=== PATIENT | female | born 1955 | race Caucasian/White ===

== ENCOUNTER 2019-01-24 15:44 | Inpatient (IN) | payer OTHER ==
[~2019-01-24] VITALS: Ht 157.5 cm; Wt 154.6 kg
[2019-01-24] MEDS ORDERED: ASPIRIN 81 MG TABLET CHEW PO ONE (16:00)
--- NOTE | 2019-01-24 16:30 | NUR ---
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
[2019-01-24 16:33] LABS: BASOPHILS # (AUTO) 0.03 x10^3/uL (0-0.1); BASOPHILS % (AUTO) 0 % (0-1); EOSINOPHILS # (AUTO) 0.25 x10^3/uL (0-0.4); EOSINOPHILS % (AUTO) 3 % (1-7); LYMPHOCYTES # (AUTO) 1.56 x10^3/uL (1-3.4); LYMPHOCYTES % (AUTO) 18 % (22-44); MD NO; MEAN CORPUSCULAR HEMOGLOBIN 29.6 pg (27.0-34.8); MEAN CORPUSCULAR HGB CONC 32.6 g/dL (32.4-35.8); MEAN CORPUSCULAR VOLUME 90.8 fL (80-100); MEAN PLATELET VOLUME 8.5 fL (7.4-10.4); MONOCYTES # (AUTO) 0.59 x10^3/uL (0.2-0.8); MONOCYTES % (AUTO) 7 % (2-9); NEUTROPHILS # (AUTO) 6.29 x10^3/uL (1.8-6.8); NEUTROPHILS % (AUTO) 72 % (42-75); PLATELET COUNT 305 x10^3/uL (130-400); RED BLOOD COUNT 5.17 x10^6/uL (3.82-5.3); RED CELL DISTRIBUTION WIDTH 15.2 % (9.6-15.2)
[2019-01-24 16:42] LABS: ALBUMIN 3.6 g/dL (3.4-5.0); ANION GAP 7 mmol/L (5-15); CALCIUM 8.9 mg/dL (8.5-10.1); CHLORIDE 107 mmol/L (98-107)
--- NOTE | 2019-01-24 16:46 | NUR ---
TJ RN: PT WAS AT HER DOCTOR'S OFFICE TODAY AND REPORTED CHEST PRESSURE WITH BILATERAL LEG WHEEPING. PT REPORTS THE CHEST PRESSURE CAME ON AT 10 AM THIS MORNING. 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 NSR NOTED. AT BEDSIDE. VS STABLE AT THIS TIME. REPORT GIVEN TO REGINE VILLAGOMEZ
[2019-01-24 16:47] LABS: ALANINE AMINOTRANSFERASE 26 U/L (12-78); ALKALINE PHOSPHATASE 118 U/L (45-117); BILIRUBIN,TOTAL 0.8 mg/dL (0.2-1.0); CREATININE 1.01 mg/dL (0.55-1.02); TOTAL PROTEIN 7.6 g/dL (6.4-8.2); TROPONIN I < 0.015 ng/mL (0.000-0.045)
[2019-01-24] MEDS ORDERED: ASPIRIN 81 MG TABLET CHEW ONE (17:15)
[2019-01-24] MEDS ORDERED: BUDE10.22 INH (17:27)
[2019-01-24] MEDS ORDERED: [UNRECOGNIZED DRUG - OTHER] PO (17:27)
[2019-01-24] MEDS ORDERED: CELE200C PO (17:27)
--- NOTE | 2019-01-24 17:28 | NUR ---
PT MEDICATED PER MAR, PLAN FOR PT TO BE ADMITTED. AWAITING BED PLACEMENT, PT WITH NO NEEDS AT THIS TIME
--- NOTE | 2019-01-24 18:29 | NUR ---
PIV INITIATED, AWAITING BED PLACEMENT, NAD NOTED
[2019-01-24] MEDS ORDERED: POLYETHYLENE GLYCOL 17 GM PACKET PO PRN (20:00)
[2019-01-24] MEDS ORDERED: ACETAMINOPHEN 325 MG TABLET PO PRN (20:00)
[2019-01-24] MEDS ORDERED: morphine SULFATE 10 MG/ML, 1ML IVPush PRN (20:00)
[2019-01-24] MEDS ORDERED: ONDANSETRON ODT 4 MG PO PRN (20:00)
[2019-01-24] MEDS ORDERED: BISACODYL 10 MG SUPP PR PRN (20:00)
[2019-01-24] MEDS ORDERED: NITROGLYCERIN 0.4 MG BOTTLE (25 TABS) SL PRN (20:00)
[2019-01-24] MEDS ORDERED: ALBUTEROL SULFATE 2.5 MG/3 ML NPPB SCH (20:30)
[2019-01-24 20:33] VITALS: BP 144/81
[2019-01-24] MEDS: BUDESONIDE 0.5 MG/2 ML INHA INH SCH (21:00)
[2019-01-24] MEDS ORDERED: TEMPLATE NON-FORMULARY MED. (Budesonide/Formoterol Fumarate (Symbicort 80-4.5 Mcg Inhaler) INH SCH (21:00)
[2019-01-24] MEDS ORDERED: ALBUTEROL SULFATE 2.5 MG/3 ML NPPB PRN (21:00)
[2019-01-24] MEDS: HEPARIN 5,000 UNITS/ML, 1ML SQ SCH (21:01)
[2019-01-24] MEDS: SODIUM CHLORIDE FLUSH 10ML SYR IVF SCH (21:02)
[2019-01-24 22:37] LABS: TROPONIN I 0.027 ng/mL (0.000-0.045)
[2019-01-24 23:50] VITALS: BP 167/87
[2019-01-25 02:00] VITALS: BP 139/83
[2019-01-25] MEDS: HEPARIN 5,000 UNITS/ML, 1ML SQ SCH ×3 (05:20→20:32)
[2019-01-25] MEDS: ASPIRIN 81 MG TABLET CHEW PO SCH (05:20)
[2019-01-25 06:52] LABS: BASOPHILS # (AUTO) 0.05 x10^3/uL (0-0.1); BASOPHILS % (AUTO) 1 % (0-1); EOSINOPHILS # (AUTO) 0.28 x10^3/uL (0-0.4); EOSINOPHILS % (AUTO) 4 % (1-7); LYMPHOCYTES # (AUTO) 0.95 x10^3/uL (1-3.4); LYMPHOCYTES % (AUTO) 13 % (22-44); MD NO; MEAN CORPUSCULAR HEMOGLOBIN 29.9 pg (27.0-34.8); MEAN CORPUSCULAR HGB CONC 32.3 g/dL (32.4-35.8); MEAN CORPUSCULAR VOLUME 92.6 fL (80-100); MEAN PLATELET VOLUME 8.9 fL (7.4-10.4); MONOCYTES # (AUTO) 0.47 x10^3/uL (0.2-0.8); MONOCYTES % (AUTO) 6 % (2-9); NEUTROPHILS # (AUTO) 5.83 x10^3/uL (1.8-6.8); NEUTROPHILS % (AUTO) 77 % (42-75); PLATELET COUNT 302 x10^3/uL (130-400); RED BLOOD COUNT 4.92 x10^6/uL (3.82-5.3); RED CELL DISTRIBUTION WIDTH 14.9 % (9.6-15.2)
[2019-01-25 07:05] LABS: ALBUMIN 3.3 g/dL (3.4-5.0); ANION GAP 6 mmol/L (5-15); CALCIUM 8.2 mg/dL (8.5-10.1); CHLORIDE 108 mmol/L (98-107)
[2019-01-25 07:09] LABS: ALANINE AMINOTRANSFERASE 24 U/L (12-78); ALKALINE PHOSPHATASE 100 U/L (45-117); BILIRUBIN,TOTAL 0.7 mg/dL (0.2-1.0); CHOL/HDL RATIO 2.9; CHOLESTEROL, TOTAL 152 mg/dL (140-239); HDL CHOL % 35 % (28-40); HDL CHOLESTEROL (DIRECT) 53 mg/dL (40-60); LDL CHOLESTEROL,CALCULATED 79 mg/dL (54-169); LDL/HDL RATIO 1.5 (0.5-3.0); TOTAL PROTEIN 6.7 g/dL (6.4-8.2); TRIGLYCERIDES 98 mg/dL (50-200); VLDL CHOLESTEROL 20 mg/dL (0-25)
[2019-01-25 07:34] VITALS: BP 145/96
[2019-01-25] MEDS: SENNA/DOCUSATE TABLET PO SCH (08:39)
[2019-01-25] MEDS ORDERED: REGADENOSON 0.4 MG/5 ML SYRINGE ONE (09:15)
[2019-01-25] MEDS: BUDESONIDE 0.5 MG/2 ML INHA INH SCH ×3 (09:35→21:40)
[2019-01-25] MEDS ORDERED: FUROSEMIDE 20 MG/2 ML IV ONE (12:30)
[2019-01-25 12:34] VITALS: BP 151/83
[2019-01-25] MEDS: SODIUM CHLORIDE FLUSH 10ML SYR IVF SCH ×2 (13:08→20:32)
[2019-01-25] MEDS: POTASSIUM CHLORIDE 20 MEQ TAB.ER.PRT PO SCH (16:42)
[2019-01-25 21:50] VITALS: BP 145/80
[2019-01-26 02:00] VITALS: BP 129/75
[2019-01-26] MEDS: ASPIRIN 81 MG TABLET CHEW PO SCH (05:12)
[2019-01-26] MEDS: HEPARIN 5,000 UNITS/ML, 1ML SQ SCH ×2 (05:13→14:11)
[2019-01-26 05:27] LABS: BASOPHILS # (AUTO) 0.04 x10^3/uL (0-0.1); BASOPHILS % (AUTO) 1 % (0-1); EOSINOPHILS # (AUTO) 0.21 x10^3/uL (0-0.4); EOSINOPHILS % (AUTO) 3 % (1-7); LYMPHOCYTES # (AUTO) 1.31 x10^3/uL (1-3.4); LYMPHOCYTES % (AUTO) 17 % (22-44); MD NO; MEAN CORPUSCULAR HGB CONC 32.9 g/dL (32.4-35.8); MEAN CORPUSCULAR VOLUME 91.3 fL (80-100); MEAN PLATELET VOLUME 8.8 fL (7.4-10.4); MONOCYTES # (AUTO) 0.63 x10^3/uL (0.2-0.8); MONOCYTES % (AUTO) 8 % (2-9); NEUTROPHILS # (AUTO) 5.66 x10^3/uL (1.8-6.8); NEUTROPHILS % (AUTO) 72 % (42-75); PLATELET COUNT 291 x10^3/uL (130-400); RED BLOOD COUNT 4.85 x10^6/uL (3.82-5.3)
[2019-01-26 05:29] LABS: ANION GAP 4 mmol/L (5-15); CALCIUM 8.3 mg/dL (8.5-10.1); CHLORIDE 107 mmol/L (98-107); CREATININE 0.88 mg/dL (0.55-1.02)
[2019-01-26 07:10] VITALS: BP 162/89
[2019-01-26] MEDS: BUDESONIDE 0.5 MG/2 ML INHA INH SCH (09:35)
[2019-01-26] MEDS: SODIUM CHLORIDE FLUSH 10ML SYR IVF SCH (09:58)
[2019-01-26] MEDS: POTASSIUM CHLORIDE 20 MEQ TAB.ER.PRT PO SCH (09:58)
[2019-01-26] MEDS: SENNA/DOCUSATE TABLET PO SCH (09:59)
[2019-01-26 12:15] VITALS: BP 178/80
[2019-01-26] MEDS ORDERED: FURO-93 PO (13:54)
[2019-01-26] MEDS ORDERED: METO25TA91 PO (13:54)
[2019-01-26] MEDS ORDERED: POTA20TA6 PO (13:54)
[2019-01-26] MEDS ORDERED: APIX5TAB PO (13:54)
== END 2019-01-26 16:55 | disposition home or self-care (01) | DRG 315 ==
LOC: ED 18:36 → EDIP 19:37 → 5SO 20:13 → DCLOUNGE 01-26 16:32
PROVIDERS: ADMIT Internal Medicine; ATTEND Family Medicine
PROC: 5A09357 Assistance with Respiratory Ventilation, Less than 24 Consecutive Hours, Continuous Positive Airway Pressure (ICD-10-PCS; principal; 2019-01-25)
PROC: 5A09357 Assistance with Respiratory Ventilation, Less than 24 Consecutive Hours, Continuous Positive Airway Pressure (ICD-10-PCS; 2019-01-26)
DX: I27.20 Pulmonary hypertension, unspecified (principal); Z68.44 Body mass index [BMI] 60.0-69.9, adult; G43.909 Migraine, unspecified, not intractable, without status migrainosus; E66.2 Morbid (severe) obesity with alveolar hypoventilation; I48.0 Paroxysmal atrial fibrillation; I51.7 Cardiomegaly; Z96.653 Presence of artificial knee joint, bilateral; I77.810 Thoracic aortic ectasia; J45.909 Unspecified asthma, uncomplicated; Z90.710 Acquired absence of both cervix and uterus; Z90.49 Acquired absence of other specified parts of digestive tract; Z88.0 Allergy status to penicillin; Z88.2 Allergy status to sulfonamides; Z88.8 Allergy status to other drugs, medicaments and biological substances
CPT/HCPCS: 36415; 93017; J7626; 71046; 78452; 80048; 80053; 80061; 83880; 84484; 85025; 85379; 93005; 93306; 93970; 94640; 94660; G0378; J1644; J2785; A9502; J1940

== ENCOUNTER 2020-03-27 11:43 | Emergency (ER) | payer MEDICARE, OTHER ==
[~2020-03-27] VITALS: Ht 157.5 cm; Wt 153.0 kg
[~2020-03-27 11:43] MED LIST: APIX5TAB PO; BUDE10.22 INH; CELE200C PO; FURO-93 PO; METO25TA91 PO; POTA20TA6 PO; [UNRECOGNIZED DRUG - OTHER] PO
[2020-03-27] MEDS ORDERED: PROPOFOL 10 MG/ML, 20ML ONE (12:29)
[2020-03-27] MEDS ORDERED: DILTIAZEM 5 MG/ML, 5ML IVPush ONE (12:30)
[2020-03-27] MEDS ORDERED: PROPOFOL 10 MG/ML, 20ML IVPush ONE (12:30)
[2020-03-27] MEDS ORDERED: SODIUM CHLORIDE FLUSH 10ML SYR IVF ONE (12:30)
--- NOTE | 2020-03-27 12:35 | NUR ---
PIV PLACED, LABS DRAWN AND COLLECTED BY SKEIN BLEACHER. PT CONNECTED TO ZOLL, SUCTION, AMBU BAG AT BEDSIDE. CONSENT SIGNED FOR CARDIOVERSION AND PROCEDURAL SEDATION., SPOUSE AT BEDSIDE.
[2020-03-27] MEDS ORDERED: DILTIAZEM 5 MG/ML, 5ML ONE (12:40)
[2020-03-27 12:45] LABS: BASOPHILS % (AUTO) 1 % (0-1); EOSINOPHILS % (AUTO) 2 % (1-7); LYMPHOCYTES % (AUTO) 16 % (22-44); MD NO; MEAN PLATELET VOLUME 8.7 fL (7.4-10.4); MONOCYTES % (AUTO) 6 % (2-9); NEUTROPHILS % (AUTO) 75 % (42-75); PLATELET COUNT 340 x10^3/uL (130-400); RED BLOOD COUNT 5.44 x10^6/uL (3.82-5.3); RED CELL DISTRIBUTION WIDTH 15.1 % (9.6-15.2)
[2020-03-27 12:54] LABS: ALBUMIN 3.9 g/dL (3.4-5.0); ANION GAP 5 mmol/L (5-15); CALCIUM 9.4 mg/dL (8.5-10.1); CHLORIDE 107 mmol/L (98-107); CREATININE 1.23 mg/dL (0.55-1.02)
--- NOTE | 2020-03-27 13:14 | NUR ---
CARDIOVERSION TIME OUT 1300. PROPOFOL 60MG IV @1302. SHOCK 200J 1303. NSR AT MID 70s. PT TOLERATED WELL. PT ALERT AND ORIENTED X4. BACK IN ROOM. PT TO BE DC WHEN READY.
[2020-03-27 13:55] VITALS: BP 131/70
--- NOTE | 2020-03-27 13:57 | NUR ---
PT AMBULATED TO RESTROOM WITH STEADY GAIT.
== END 2020-03-27 13:58 | disposition home or self-care (01) ==
LOC: ED 12:33
DX: I48.20 Chronic atrial fibrillation, unspecified (principal); I11.0 Hypertensive heart disease with heart failure; I50.9 Heart failure, unspecified; E11.9 Type 2 diabetes mellitus without complications; J45.909 Unspecified asthma, uncomplicated; Z90.710 Acquired absence of both cervix and uterus
CPT/HCPCS: 36415; 80048; 82040; 83735; 84443; 85025; 92960; 93005; 99152; 99291; J2704

== ENCOUNTER → 2020-05-13 | Outpatient (CLI) | payer MEDICARE | END | disposition home or self-care (01) | LOC: CFH 11:12 | DX: Z12.31 Encounter for screening mammogram for malignant neoplasm of breast (principal); Z13.820 Encounter for screening for osteoporosis; N95.9 Unspecified menopausal and perimenopausal disorder | CPT/HCPCS: 77063; 77067; 77080 ==

== ENCOUNTER → 2020-09-09 | Outpatient (CLI) | payer MEDICARE | END | disposition home or self-care (01) | LOC: CVU 08:36 | PROVIDERS: ATTEND Internal Medicine Cardiovascular Disease | DX: I34.0 Nonrheumatic mitral (valve) insufficiency (principal); I48.0 Paroxysmal atrial fibrillation; E66.01 Morbid (severe) obesity due to excess calories | CPT/HCPCS: 93306; 93356 ==

== ENCOUNTER 2020-12-09 06:48 | Day surgery (SDC) | payer MEDICARE ==
[~2020-12-09] VITALS: Ht 157.5 cm; Wt 154.5 kg
[~2020-12-09 06:48] MED LIST changes: +POTA-143 PO; -POTA20TA6 PO
[2020-12-09 07:39] VITALS: BP 132/89
[2020-12-09 07:39] LABS: ANION GAP 8 mmol/L (5-15); CALCIUM 8.8 mg/dL (8.5-10.1); CHLORIDE 106 mmol/L (98-107); CREATININE 1.03 mg/dL (0.55-1.02)
[2020-12-09] MEDS ORDERED: METH4TAB2 PO (07:39)
[2020-12-09] MEDS ORDERED: DILT-86 PO (07:39)
[2020-12-09] MEDS ORDERED: FURO40TA6 PO (07:39)
[2020-12-09] MEDS ORDERED: ALBU18HF IH (07:39)
[2020-12-09] MEDS ORDERED: FLUT1BLS15 INH (07:39)
[2020-12-09] MEDS ORDERED: POTA-143 PO (07:39)
[2020-12-09] MEDS ORDERED: ALBU8.5H8 NEB (07:39)
== END 2020-12-09 09:17 | disposition home or self-care (01) ==
LOC: CACL 06:48
PROVIDERS: ATTEND Internal Medicine Cardiovascular Disease
DX: I48.0 Paroxysmal atrial fibrillation (principal); I11.0 Hypertensive heart disease with heart failure; I50.30 Unspecified diastolic (congestive) heart failure; M19.90 Unspecified osteoarthritis, unspecified site; F41.1 Generalized anxiety disorder; G43.909 Migraine, unspecified, not intractable, without status migrainosus; J45.909 Unspecified asthma, uncomplicated; G47.33 Obstructive sleep apnea (adult) (pediatric); Z88.8 Allergy status to other drugs, medicaments and biological substances; Z88.0 Allergy status to penicillin; Z88.1 Allergy status to other antibiotic agents; Z88.2 Allergy status to sulfonamides; Z90.710 Acquired absence of both cervix and uterus; Z98.890 Other specified postprocedural states; Z90.49 Acquired absence of other specified parts of digestive tract; Z79.01 Long term (current) use of anticoagulants; Z79.899 Other long term (current) drug therapy; Z68.44 Body mass index [BMI] 60.0-69.9, adult
CPT/HCPCS: 36415; 80048; 92960; 93005